=== PATIENT | male | born 1940 | race Caucasian/White ===

== ENCOUNTER → 2017-01-03 | Outpatient (CLI) | payer OTHER | END | disposition home or self-care (01) | LOC: CFH 14:43 | PROVIDERS: ATTEND Internal Medicine | DX: M48.06 Spinal stenosis, lumbar region (principal); D18.09 Hemangioma of other sites | CPT/HCPCS: 72148 ==

== ENCOUNTER → 2020-03-11 | Outpatient (CLI) | payer OTHER ==
[~2020-03-11] MED LIST: ASPI81TA45 PO; ATOR80TA PO; CHOL10002 PO; DULO20CA45 PO; FURO-92 PO; INSU100I13 SC; LIRA0.6P SC; METO50TA82 PO; NATE120T2 PO; PREG150C PO; PRIM50TA34 PO; TAMS-11 PO
[2020-03-11 14:52] LABS: BASOPHILS # (AUTO) 0.05 x10^3/uL (0-0.1); BASOPHILS % (AUTO) 1 % (0-1); EOSINOPHILS # (AUTO) 0.09 x10^3/uL (0-0.4); EOSINOPHILS % (AUTO) 1 % (1-7); LYMPHOCYTES % (AUTO) 24 % (22-44); MD NO; MEAN CORPUSCULAR HEMOGLOBIN 28.9 pg (27.5-34.5); MEAN CORPUSCULAR VOLUME 90.4 fL (81-97); MEAN PLATELET VOLUME 9.2 fL (7.4-10.4); MONOCYTES # (AUTO) 0.45 x10^3/uL (0.2-0.8); MONOCYTES % (AUTO) 6 % (2-9); NEUTROPHILS # (AUTO) 5.76 x10^3/uL (1.8-6.8); NEUTROPHILS % (AUTO) 69 % (42-75); PLATELET COUNT 151 x10^3/uL (130-400); RED BLOOD COUNT 4.21 x10^6/uL (4.38-5.82); RED CELL DISTRIBUTION WIDTH 14.8 % (9.4-14.8)
[2020-03-11 15:01] LABS: MICROSCOPIC AUTO
[2020-03-11 15:03] LABS: ALBUMIN 3.6 g/dL (3.4-5.0); ANION GAP 5 mmol/L (5-15); CALCIUM 9.1 mg/dL (8.5-10.1); CHLORIDE 109 mmol/L (98-107)
[2020-03-11 15:07] LABS: ALANINE AMINOTRANSFERASE 23 U/L (12-78); ALKALINE PHOSPHATASE 132 U/L (45-117); BILIRUBIN,TOTAL 0.3 mg/dL (0.2-1.0); CREATININE 1.59 mg/dL (0.7-1.3); INTERNATIONAL NORMALIZED RATIO 0.97 (0.93-1.1); TOTAL PROTEIN 7.4 g/dL (6.4-8.2)
== END | disposition home or self-care (01) ==
LOC: STAR 12:04
PROVIDERS: ATTEND Neurological Surgery
DX: Z01.818 Encounter for other preprocedural examination (principal); M47.816 Spondylosis without myelopathy or radiculopathy, lumbar region; M48.061 Spinal stenosis, lumbar region without neurogenic claudication; M43.16 Spondylolisthesis, lumbar region; M54.16 Radiculopathy, lumbar region; R79.1 Abnormal coagulation profile; R82.90 Unspecified abnormal findings in urine; R94.31 Abnormal electrocardiogram [ECG] [EKG]; I10 Essential (primary) hypertension; E11.9 Type 2 diabetes mellitus without complications
CPT/HCPCS: 36415; 71046; 72131; 80053; 81001; 85025; 85610; 85730; 93005

== ENCOUNTER → 2020-03-14 | Outpatient (CLI) | payer OTHER | END | disposition home or self-care (01) | LOC: STAR 15:03 | PROVIDERS: ATTEND Anesthesiology | DX: Z20.828 Contact with and (suspected) exposure to other viral communicable diseases (principal) | CPT/HCPCS: 36415; 87635 ==

== ENCOUNTER 2020-03-18 07:00 | Inpatient (IN) | payer OTHER ==
[~2020-03-18] VITALS: Ht 175.3 cm; Wt 124.4 kg
[~2020-03-18 07:00] MED LIST changes: +BACITRACIN 50,000 UNIT ONE; +BUPIVACAINE/PF 0.5% ONE; +EPINEPHRINE 1 MG/ML, 1ML ONE; +VANCOMYCIN 1,000 MG ONE
[2020-03-18] MEDS ORDERED: NALOXONE 1 MG/ML, 2ML ONE (08:00)
[2020-03-18] MEDS ORDERED: LACTATED RINGERS 1,000 ML IV SCH (09:39)
[2020-03-18 09:41] VITALS: BP 110/64
[2020-03-18] MEDS ORDERED: CHLORHEXIDINE 15 ML UDC MM ONE (10:00)
[2020-03-18] MEDS ORDERED: FENTANYL PF 250 MCG/5ML ONE (10:01)
[2020-03-18] MEDS ORDERED: SUCCINYLCHOLINE 20 MG/ML, 10ML ONE (10:02)
[2020-03-18] MEDS ORDERED: DEXAMETHASONE 4 MG/ML, 1ML ONE (10:02)
[2020-03-18] MEDS ORDERED: CEFAZOLIN 1,000 MG ONE (10:02)
[2020-03-18] MEDS ORDERED: PROPOFOL 10 MG/ML, 20ML ONE (10:02)
[2020-03-18] MEDS ORDERED: ROCURONIUM 10MG/ML,5ML ONE (10:02)
[2020-03-18] MEDS ORDERED: GLYCOPYRROLATE 0.2MG/1ML, 5ML ONE (10:02)
[2020-03-18] MEDS ORDERED: ONDANSETRON 2MG/ML, 2ML ONE (10:02)
[2020-03-18] MEDS ORDERED: NEOSTIGMINE 1 MG/ML, 10ML ONE (10:02)
[2020-03-18] MEDS ORDERED: NOREPINEPHRINE 1 MG/ML, 4ML ONE (10:05)
[2020-03-18] MEDS ORDERED: SUGAMMADEX 200 MG/2 ML IVPush ONE (10:18)
[2020-03-18] MEDS ORDERED: VASOPRESSIN 20 UNIT/ML, 1ML ONE (10:18)
[2020-03-18] MEDS ORDERED: DIPHENHYDRAMINE 50 MG/ML, 1ML IVPush PRN ×2 (12:00→15:30)
[2020-03-18] MEDS ORDERED: HYDROmorphone 1 MG/ML, 1ML INJ IVPush PRN (12:00)
[2020-03-18] MEDS ORDERED: PROMETHAZINE 12.5 MG SUPP PR PRN (12:00)
[2020-03-18] MEDS ORDERED: FENTANYL PF 100 MCG/2ML IV PRN (12:00)
[2020-03-18] MEDS ORDERED: EPHEDRINE 50 MG/ML, 1ML IVPush PRN (12:00)
[2020-03-18] MEDS ORDERED: LABETALOL 5MG/ML, 20ML IV PRN (12:00)
[2020-03-18] MEDS ORDERED: ACETAMINOPHEN 325 MG TABLET PO PRN (12:00)
[2020-03-18] MEDS ORDERED: OXYcodone 5 MG/5 ML ORAL.SOL UDC PO PRN (12:00)
[2020-03-18] MEDS ORDERED: hydrALAzine 20 MG/ML, 1ML IV PRN (12:00)
[2020-03-18] MEDS ORDERED: FENTANYL PF 100 MCG/2ML ONE (12:45)
[2020-03-18] MEDS ORDERED: METHOCARBAMOL 1,000 MG in DEXTROSE 5% 100 ML IV ONE ×2 (14:30→15:30)
[2020-03-18] MEDS ORDERED: OXYcodone 5 MG/5 ML ORAL.SOL UDC ONE (14:37)
[2020-03-18] MEDS ORDERED: PROMETHAZINE 25 MG/ML, 1ML IM PRN (15:30)
[2020-03-18] MEDS ORDERED: CEFAZOLIN PMX 1GM/50ML 50 ML IVPB SCH (15:30)
[2020-03-18] MEDS ORDERED: OXYcodone IR 5MG TABLET PO PRN (15:30)
[2020-03-18] MEDS ORDERED: ONDANSETRON 2MG/ML, 2ML IV PRN (15:30)
[2020-03-18] MEDS ORDERED: MAGNESIUM HYDROXIDE 8%, 30ML UDC PO PRN (15:30)
[2020-03-18] MEDS ORDERED: METHOCARBAMOL 750 MG TABLET PO SCH (15:30)
[2020-03-18] MEDS ORDERED: METHOCARBAMOL 750 MG in DEXTROSE 5% 100 ML IV SCH (15:30)
[2020-03-18] MEDS ORDERED: morphine SULFATE 10 MG/ML, 1ML IV PRN (15:30)
[2020-03-18] MEDS ORDERED: DIPHENHYDRAMINE 25 MG CAPSULE PO PRN (15:30)
[2020-03-18] MEDS ORDERED: BISACODYL 10 MG SUPP PR PRN (15:30)
[2020-03-18] MEDS ORDERED: DIPHENHYDRAMINE 50 MG/ML, 1ML IM PRN (15:30)
[2020-03-18] MEDS ORDERED: HYDROcodone/APAP 5/325 TABLET PO PRN (15:30)
[2020-03-18] MEDS: NATEGLINIDE 120 MG TABLET PO SCH ×3 (16:00→20:38)
[2020-03-18 16:43] VITALS: BP 165/60
[2020-03-18] MEDS: LABETALOL 5MG/ML, 20ML IV PRN ×3 (16:44→20:38)
[2020-03-18] MEDS: NS + 20MEQ KCL 1,000 ML IV SCH (16:44)
[2020-03-18] MEDS: INSULIN REGULAR 100 UNITS/ML, 3ML VIAL SQ-INSULIN SCH ×2 (16:49→20:53)
[2020-03-18 17:09] VITALS: BP 154/51
[2020-03-18] MEDS ORDERED: NALOXONE 0.4 MG/ML, 1ML IVPush PRN (18:30)
[2020-03-18 18:36] VITALS: BP 164/54
[2020-03-18] MEDS: CEFAZOLIN PMX 1GM/50ML 50 ML IVPB SCH (18:37)
[2020-03-18 19:41] VITALS: BP 178/81
[2020-03-18] MEDS: PRIMIDONE 50 MG TABLET PO SCH ×2 (20:38→20:48)
[2020-03-18] MEDS: PREGABALIN 150 MG CAPSULE PO SCH (20:38)
[2020-03-18] MEDS: ATORVASTATIN 80 MG TABLET PO SCH (20:38)
[2020-03-18] MEDS ORDERED: DULOXETINE 20 MG CAPSULE.DR PO SCH (21:00)
[2020-03-18] MEDS: INSULIN GLARGINE 100 UNITS/ML, PEN SQ-INSULIN SCH (21:00)
[2020-03-18] MEDS: METHOCARBAMOL 750 MG in DEXTROSE 5% 100 ML IV SCH (22:52)
[2020-03-18 23:09] VITALS: BP 165/54
[2020-03-19] MEDS: CEFAZOLIN PMX 1GM/50ML 50 ML IVPB SCH (02:21)
[2020-03-19 02:58] VITALS: BP 152/52
[2020-03-19] MEDS: NS + 20MEQ KCL 1,000 ML IV SCH (05:03)
[2020-03-19 05:27] LABS: BASOPHILS # (AUTO) 0.03 x10^3/uL (0-0.1); BASOPHILS % (AUTO) 0 % (0-1); EOSINOPHILS % (AUTO) 0 % (1-7); LYMPHOCYTES % (AUTO) 8 % (22-44); MD NO; MEAN PLATELET VOLUME 9.4 fL (7.4-10.4); MONOCYTES # (AUTO) 0.68 x10^3/uL (0.2-0.8); MONOCYTES % (AUTO) 6 % (2-9); NEUTROPHILS # (AUTO) 9.06 x10^3/uL (1.8-6.8); NEUTROPHILS % (AUTO) 85 % (42-75); PLATELET COUNT 123 x10^3/uL (130-400); RED CELL DISTRIBUTION WIDTH 14.8 % (9.4-14.8)
[2020-03-19] MEDS: METHOCARBAMOL 750 MG in DEXTROSE 5% 100 ML IV SCH ×3 (05:39→22:01)
[2020-03-19] MEDS: ENOXAPARIN 40 MG/0.4 ML SQ SCH (05:39)
[2020-03-19] MEDS: METOPROLOL TARTRATE 25 MG TAB PO SCH ×2 (05:39→17:45)
[2020-03-19 06:17] LABS: ANION GAP 4 mmol/L (5-15); CALCIUM 7.8 mg/dL (8.5-10.1); CHLORIDE 107 mmol/L (98-107); CREATININE 2.05 mg/dL (0.7-1.3)
[2020-03-19] MEDS: INSULIN REGULAR 100 UNITS/ML, 3ML VIAL SQ-INSULIN SCH ×4 (06:53→20:52)
[2020-03-19 07:24] LABS: ANION GAP 3 mmol/L (5-15); CHLORIDE 108 mmol/L (98-107)
[2020-03-19 07:25] LABS: CREATININE 2.13 mg/dL (0.7-1.3)
[2020-03-19 07:49] VITALS: BP 130/42
[2020-03-19] MEDS ORDERED: FUROSEMIDE 40 MG TABLET PO SCH (09:00)
[2020-03-19] MEDS ORDERED: LIRAGLUTIDE 6 MG/ML HOMEINJ SCH (09:00)
[2020-03-19] MEDS ORDERED: INSULIN GLARGINE 100 UNITS/ML, PEN SQ-INSULIN SCH (09:00)
[2020-03-19] MEDS ORDERED: CALCIUM GLUCONATE 4.6 MEQ in SODIUM CHLORIDE 0.9% 100 ML IV ONE (10:00)
[2020-03-19] MEDS ORDERED: POLYETHYLENE GLYCOL 17 GM PACKET PO PRN (10:00)
[2020-03-19] MEDS ORDERED: INSULIN REGULAR 100 UNITS/ML, 3ML VIAL IVPush ONE (10:00)
[2020-03-19] MEDS: PREGABALIN 150 MG CAPSULE PO SCH ×2 (10:00→20:50)
[2020-03-19] MEDS ORDERED: CALCIUM GLUCONATE 4.6 MEQ/10 ML IVPush ONE (10:00)
[2020-03-19] MEDS: DULOXETINE 20 MG CAPSULE.DR PO SCH (10:00)
[2020-03-19] MEDS: SENNA/DOCUSATE TABLET PO SCH (10:00)
[2020-03-19] MEDS: TAMSULOSIN 0.4 MG CAP.ER.24H PO SCH (10:00)
[2020-03-19] MEDS ORDERED: hydrALAzine 20 MG/ML, 1ML IVPush PRN (10:00)
[2020-03-19] MEDS ORDERED: DEXTROSE 50%, 50ML SYRINGE IVPush ONE (10:00)
[2020-03-19] MEDS: SODIUM CHLORIDE 0.9% 1,000 ML IV SCH (10:56)
[2020-03-19 12:16] VITALS: BP 157/63
[2020-03-19 12:30] LABS: MICROSCOPIC AUTO
[2020-03-19 14:56] LABS: ANION GAP 5 mmol/L (5-15); CALCIUM 8.2 mg/dL (8.5-10.1); CHLORIDE 107 mmol/L (98-107); CREATININE 2.11 mg/dL (0.7-1.3)
[2020-03-19] MEDS ORDERED: SODIUM POLYSTYRENE SULFONATE ORAL SUSP PO ONE (18:00)
[2020-03-19] MEDS: ATORVASTATIN 80 MG TABLET PO SCH (20:50)
[2020-03-19] MEDS: PRIMIDONE 50 MG TABLET PO SCH (20:51)
[2020-03-19] MEDS: INSULIN GLARGINE 100 UNITS/ML, PEN SQ-INSULIN SCH (20:52)
[2020-03-19 22:36] VITALS: BP 122/56
[2020-03-20 00:27] VITALS: BP 133/46
[2020-03-20] MEDS: SODIUM CHLORIDE 0.9% 1,000 ML IV SCH (02:30)
[2020-03-20 05:20] LABS: ALBUMIN 2.6 g/dL (3.4-5.0); ANION GAP 5 mmol/L (5-15); CALCIUM 8.5 mg/dL (8.5-10.1); CHLORIDE 109 mmol/L (98-107)
[2020-03-20 05:24] LABS: ALANINE AMINOTRANSFERASE 30 U/L (12-78); ALKALINE PHOSPHATASE 89 U/L (45-117); BILIRUBIN,TOTAL 0.4 mg/dL (0.2-1.0); CREATININE 1.87 mg/dL (0.7-1.3); TOTAL PROTEIN 6.1 g/dL (6.4-8.2)
[2020-03-20] MEDS: ENOXAPARIN 40 MG/0.4 ML SQ SCH (05:26)
[2020-03-20 05:27] LABS: MEAN CORPUSCULAR HEMOGLOBIN 28.9 pg (27.5-34.5)
[2020-03-20] MEDS: METOPROLOL TARTRATE 25 MG TAB PO SCH ×2 (05:27→18:37)
[2020-03-20] MEDS: METHOCARBAMOL 750 MG in DEXTROSE 5% 100 ML IV SCH (05:43)
[2020-03-20 05:49] LABS: BASOPHILS # (AUTO) 0.02 x10^3/uL (0-0.1); BASOPHILS % (AUTO) 0 % (0-1); EOSINOPHILS # (AUTO) 0.03 x10^3/uL (0-0.4); EOSINOPHILS % (AUTO) 0 % (1-7); LYMPHOCYTES % (AUTO) 15 % (22-44); MD SCAN; MEAN PLATELET VOLUME 9.1 fL (7.4-10.4); MONOCYTES # (AUTO) 0.65 x10^3/uL (0.2-0.8); MONOCYTES % (AUTO) 9 % (2-9); NEUTROPHILS # (AUTO) 5.69 x10^3/uL (1.8-6.8); NEUTROPHILS % (AUTO) 76 % (42-75); PLATELET COUNT 87 x10^3/uL (130-400)
[2020-03-20] MEDS: INSULIN REGULAR 100 UNITS/ML, 3ML VIAL SQ-INSULIN SCH ×4 (07:00→21:12)
[2020-03-20 07:26] VITALS: BP 120/56
[2020-03-20] MEDS: SENNA/DOCUSATE TABLET PO SCH (09:00)
[2020-03-20] MEDS: PREGABALIN 150 MG CAPSULE PO SCH ×2 (09:00→21:12)
[2020-03-20] MEDS: TAMSULOSIN 0.4 MG CAP.ER.24H PO SCH (09:00)
[2020-03-20] MEDS: DULOXETINE 20 MG CAPSULE.DR PO SCH (09:00)
[2020-03-20] MEDS ORDERED: ENOXAPARIN 30 MG/0.3 ML SQ SCH (11:00)
[2020-03-20 13:26] VITALS: BP 127/60
[2020-03-20 20:49] VITALS: BP 150/69
[2020-03-20] MEDS: PRIMIDONE 50 MG TABLET PO SCH (21:11)
[2020-03-20] MEDS: INSULIN GLARGINE 100 UNITS/ML, PEN SQ-INSULIN SCH (21:12)
[2020-03-20] MEDS: ATORVASTATIN 80 MG TABLET PO SCH (21:12)
[2020-03-20] MEDS: METHOCARBAMOL 750 MG TABLET PO SCH (23:07)
[2020-03-21 01:06] VITALS: BP 138/67
[2020-03-21] MEDS: METOPROLOL TARTRATE 25 MG TAB PO SCH ×2 (05:55→16:52)
[2020-03-21 06:27] LABS: CHLORIDE 108 mmol/L (98-107)
[2020-03-21 06:43] LABS: ALANINE AMINOTRANSFERASE 31 U/L (12-78); ALBUMIN 2.4 g/dL (3.4-5.0); ALKALINE PHOSPHATASE 89 U/L (45-117); ANION GAP 6 mmol/L (5-15); BILIRUBIN,TOTAL 0.5 mg/dL (0.2-1.0); CALCIUM 8.3 mg/dL (8.5-10.1); CREATININE 1.85 mg/dL (0.7-1.3); TOTAL PROTEIN 6.3 g/dL (6.4-8.2)
[2020-03-21 06:57] LABS: BASOPHILS # (AUTO) 0.01 x10^3/uL (0-0.1); BASOPHILS % (AUTO) 0 % (0-1); EOSINOPHILS % (AUTO) 1 % (1-7); LYMPHOCYTES % (AUTO) 13 % (22-44); MD NO; MEAN CORPUSCULAR HGB CONC 32.2 g/dL (33.2-36.2); MEAN PLATELET VOLUME 9.7 fL (7.4-10.4); MONOCYTES # (AUTO) 0.53 x10^3/uL (0.2-0.8); MONOCYTES % (AUTO) 7 % (2-9); NEUTROPHILS # (AUTO) 5.64 x10^3/uL (1.8-6.8); NEUTROPHILS % (AUTO) 79 % (42-75); PLATELET COUNT 105 x10^3/uL (130-400); RED BLOOD COUNT 3.01 x10^6/uL (4.38-5.82)
[2020-03-21] MEDS: INSULIN REGULAR 100 UNITS/ML, 3ML VIAL SQ-INSULIN SCH ×4 (07:00→21:00)
[2020-03-21] MEDS: METHOCARBAMOL 750 MG TABLET PO SCH ×3 (08:14→22:58)
[2020-03-21] MEDS: DULOXETINE 20 MG CAPSULE.DR PO SCH (08:14)
[2020-03-21] MEDS: TAMSULOSIN 0.4 MG CAP.ER.24H PO SCH (08:14)
[2020-03-21] MEDS: SENNA/DOCUSATE TABLET PO SCH (08:14)
[2020-03-21] MEDS: PREGABALIN 150 MG CAPSULE PO SCH ×2 (08:14→22:06)
[2020-03-21] MEDS: INSULIN GLARGINE 100 UNITS/ML, PEN SQ-INSULIN SCH ×2 (08:15→22:07)
[2020-03-21 09:08] VITALS: BP 131/63
[2020-03-21] MEDS ORDERED: SODIUM CHLORIDE 0.45% 1,000 ML IV SCH (09:30)
[2020-03-21] MEDS ORDERED: SODIUM CHLORIDE 0.9% 1,000 ML IV SCH (09:38)
[2020-03-21 12:17] VITALS: BP 146/63
[2020-03-21] MEDS: HEPARIN 5,000 UNITS/ML, 1ML SQ SCH ×2 (14:59→22:58)
[2020-03-21 20:40] VITALS: BP 131/60
[2020-03-21] MEDS: ATORVASTATIN 80 MG TABLET PO SCH (22:06)
[2020-03-21] MEDS: PRIMIDONE 50 MG TABLET PO SCH (22:06)
[2020-03-22 01:20] VITALS: BP 140/82
[2020-03-22] MEDS ORDERED: METOPROLOL TARTRATE 25 MG TAB PO ONE (01:30)
[2020-03-22 05:08] LABS: BASOPHILS # (AUTO) 0.03 x10^3/uL (0-0.1); BASOPHILS % (AUTO) 0 % (0-1); EOSINOPHILS # (AUTO) 0.08 x10^3/uL (0-0.4); EOSINOPHILS % (AUTO) 1 % (1-7); LYMPHOCYTES # (AUTO) 0.91 x10^3/uL (1-3.4); LYMPHOCYTES % (AUTO) 13 % (22-44); MD NO; MEAN CORPUSCULAR HEMOGLOBIN 29.4 pg (27.5-34.5); MONOCYTES # (AUTO) 0.53 x10^3/uL (0.2-0.8); MONOCYTES % (AUTO) 8 % (2-9); NEUTROPHILS # (AUTO) 5.28 x10^3/uL (1.8-6.8); NEUTROPHILS % (AUTO) 77 % (42-75); PLATELET COUNT 122 x10^3/uL (130-400); RED BLOOD COUNT 2.96 x10^6/uL (4.38-5.82); RED CELL DISTRIBUTION WIDTH 14.7 % (9.4-14.8)
[2020-03-22 05:16] LABS: CHLORIDE 107 mmol/L (98-107)
[2020-03-22 05:25] LABS: ALANINE AMINOTRANSFERASE 41 U/L (12-78); ALBUMIN 2.2 g/dL (3.4-5.0); ALKALINE PHOSPHATASE 85 U/L (45-117); ANION GAP 6 mmol/L (5-15); BILIRUBIN,TOTAL 0.4 mg/dL (0.2-1.0); CALCIUM 8.3 mg/dL (8.5-10.1); CREATININE 1.91 mg/dL (0.7-1.3); TOTAL PROTEIN 6.1 g/dL (6.4-8.2)
[2020-03-22 05:30] VITALS: BP 148/54
[2020-03-22] MEDS: METOPROLOL TARTRATE 25 MG TAB PO SCH ×2 (05:33→17:01)
[2020-03-22] MEDS: INSULIN REGULAR 100 UNITS/ML, 3ML VIAL SQ-INSULIN SCH ×4 (07:00→21:38)
[2020-03-22] MEDS: SENNA/DOCUSATE TABLET PO SCH (07:46)
[2020-03-22] MEDS: HEPARIN 5,000 UNITS/ML, 1ML SQ SCH ×2 (08:16→15:32)
[2020-03-22] MEDS: PREGABALIN 150 MG CAPSULE PO SCH ×2 (08:16→21:47)
[2020-03-22] MEDS: METHOCARBAMOL 750 MG TABLET PO SCH ×2 (08:16→15:31)
[2020-03-22] MEDS: TAMSULOSIN 0.4 MG CAP.ER.24H PO SCH (08:16)
[2020-03-22] MEDS: DULOXETINE 20 MG CAPSULE.DR PO SCH (08:16)
[2020-03-22] MEDS: INSULIN GLARGINE 100 UNITS/ML, PEN SQ-INSULIN SCH ×2 (08:17→21:48)
[2020-03-22 08:55] VITALS: BP 103/83
[2020-03-22 14:35] VITALS: BP_SYST 127; BP_SYST 90; BP_DIAS 55; BP_DIAS 61
[2020-03-22] MEDS ORDERED: FUROSEMIDE 40 MG/4 ML IV ONE (15:00)
[2020-03-22 19:04] VITALS: BP 150/69
[2020-03-22 19:15] LABS: MICROSCOPIC AUTO
[2020-03-22] MEDS: PRIMIDONE 50 MG TABLET PO SCH (21:47)
[2020-03-22] MEDS: ATORVASTATIN 80 MG TABLET PO SCH (21:47)
[2020-03-23 00:15] VITALS: BP 148/60
[2020-03-23] MEDS: METHOCARBAMOL 750 MG TABLET PO SCH ×2 (00:19→08:43)
[2020-03-23] MEDS: HEPARIN 5,000 UNITS/ML, 1ML SQ SCH ×2 (00:19→08:44)
[2020-03-23 05:08] LABS: BASOPHILS # (AUTO) 0.03 x10^3/uL (0-0.1); BASOPHILS % (AUTO) 1 % (0-1); EOSINOPHILS % (AUTO) 2 % (1-7); LYMPHOCYTES # (AUTO) 0.93 x10^3/uL (1-3.4); LYMPHOCYTES % (AUTO) 17 % (22-44); MD NO; MEAN CORPUSCULAR HEMOGLOBIN 29.4 pg (27.5-34.5); MEAN CORPUSCULAR HGB CONC 32.5 g/dL (33.2-36.2); MEAN PLATELET VOLUME 9.3 fL (7.4-10.4); MONOCYTES % (AUTO) 9 % (2-9); NEUTROPHILS # (AUTO) 3.85 x10^3/uL (1.8-6.8); NEUTROPHILS % (AUTO) 71 % (42-75); PLATELET COUNT 115 x10^3/uL (130-400); RED BLOOD COUNT 2.79 x10^6/uL (4.38-5.82); RED CELL DISTRIBUTION WIDTH 14.3 % (9.4-14.8)
[2020-03-23 05:09] LABS: ANION GAP 1 mmol/L (5-15); CALCIUM 8.7 mg/dL (8.5-10.1); CHLORIDE 105 mmol/L (98-107); CREATININE 1.78 mg/dL (0.7-1.3)
[2020-03-23 06:29] VITALS: BP 139/45
[2020-03-23] MEDS: METOPROLOL TARTRATE 25 MG TAB PO SCH (06:30)
[2020-03-23] MEDS: INSULIN REGULAR 100 UNITS/ML, 3ML VIAL SQ-INSULIN SCH ×2 (06:36→12:06)
[2020-03-23] MEDS: PREGABALIN 150 MG CAPSULE PO SCH (08:43)
[2020-03-23] MEDS: TAMSULOSIN 0.4 MG CAP.ER.24H PO SCH (08:43)
[2020-03-23] MEDS: DULOXETINE 20 MG CAPSULE.DR PO SCH (08:43)
[2020-03-23] MEDS: SENNA/DOCUSATE TABLET PO SCH (08:44)
[2020-03-23] MEDS: INSULIN GLARGINE 100 UNITS/ML, PEN SQ-INSULIN SCH (08:45)
[2020-03-23 14:12] VITALS: BP 158/61
== END 2020-03-23 15:12 | DRG 453 ==
LOC: ORIP 08:38 → 4NE 14:52 → 4EST 03-19 11:47
PROVIDERS: ADMIT Neurological Surgery; ATTEND Family Medicine
PROC: 0SG0071 Fusion of Lumbar Vertebral Joint with Autologous Tissue Substitute, Posterior Approach, Posterior Column, Open Approach (ICD-10-PCS; 2020-03-18)
PROC: 0SB20ZZ Excision of Lumbar Vertebral Disc, Open Approach (ICD-10-PCS; 2020-03-18)
PROC: 01NR0ZZ Release Sacral Nerve, Open Approach (ICD-10-PCS; 2020-03-18)
PROC: 01NB0ZZ Release Lumbar Nerve, Open Approach (ICD-10-PCS; 2020-03-18)
PROC: 4A11X4G Monitoring of Peripheral Nervous Electrical Activity, Intraoperative, External Approach (ICD-10-PCS; 2020-03-18)
PROC: 0SG00AJ Fusion of Lumbar Vertebral Joint with Interbody Fusion Device, Posterior Approach, Anterior Column, Open Approach (ICD-10-PCS; principal; 2020-03-18 10:30)
DX: M48.062 Spinal stenosis, lumbar region with neurogenic claudication (principal); G93.41 Metabolic encephalopathy; J18.9 Pneumonia, unspecified organism; N17.9 Acute kidney failure, unspecified; J81.1 Chronic pulmonary edema; D64.9 Anemia, unspecified; D69.6 Thrombocytopenia, unspecified; E11.51 Type 2 diabetes mellitus with diabetic peripheral angiopathy without gangrene; E87.5 Hyperkalemia; I10 Essential (primary) hypertension; I25.10 Atherosclerotic heart disease of native coronary artery without angina pectoris; M43.16 Spondylolisthesis, lumbar region; N40.1 Benign prostatic hyperplasia with lower urinary tract symptoms; R33.8 Other retention of urine; R74.0 Nonspecific elevation of levels of transaminase and lactic acid dehydrogenase [LDH]; Z66 Do not resuscitate; Z80.42 Family history of malignant neoplasm of prostate; Z95.1 Presence of aortocoronary bypass graft; Z95.2 Presence of prosthetic heart valve; Z79.899 Other long term (current) drug therapy; Z20.828 Contact with and (suspected) exposure to other viral communicable diseases; Z91.041 Radiographic dye allergy status; M51.16 Intervertebral disc disorders with radiculopathy, lumbar region
CPT/HCPCS: 36415; 72100; 84145; S0020; 71045; 72148; 80048; 80053; 81001; 82570; 82962; 83735; 84100; 84300; 85025; 87040; 87635; 93005; 93970; C1713; G0378; J0171; J0610; J0690; J1100; J1644; J1650; J1815; J1940; J2310; J2405; J2704; J2710; J3010; J3370; J3480; C1763; C1889; J0330; J2800; J7030; J7120